=== PATIENT | male | born 1960 | race Asian ===

== ENCOUNTER 2021-05-25 12:10 | Day surgery (SDC) | payer OTHER ==
[~2021-05-25] VITALS: Ht 175.3 cm; Wt 63.5 kg
[2021-05-25] VITALS (9 sets, daily range): BP systolic 136–166; BP diastolic 79–110; PULSE 61–90; TEMP 97.5–98.6
[2021-05-25] MEDS ORDERED: XALATAN EYE DROPS OS (13:00)
[2021-05-25] MEDS ORDERED: COSOPT 2%-0.5%10 ML OS (13:01)
[2021-05-25] MEDS ORDERED: FLOMAX 0.40.4 MG/CAP PO (13:02)
--- NOTE | 2021-05-25 13:51 | NUR ---
TO BATHROOM ASSISTED BY
[2021-05-25] MEDS ORDERED: NORCO 325 MG-51 TAB PO (17:07)
--- NOTE | 2021-05-25 18:00 | NUR ---
PATIENT ADMITED INTO ROOM 350 POST OP BILATERAL HERNIA REPAIR. PATIENT IS NOT PANAMANIAN SPEAKING. SON, WHO CAN TRANSLATE IS ON HIS WAY. VSS. PATIENT APPEARS TO BE COMFORTABLE. ABD LAP SITES ARE CD&I WITH BANDAID. SANA SHINE INPLACE. HEAD TO TOE ASSESSMENT COMPLETE, SEE SHIFT ASSESSMENT. SON NOW AT BEDSIDE.
--- NOTE | 2021-05-25 18:18 | NUR ---
Patient came to the surgical unit alert and oriented x 3, vital signs stable, no pain, nausea or vomiting. Patient had a robotic bilateral inguinal repair with 3 lap sites in abd, clean, dry and intact, covered with bandaids. Patient is Mandarin speaking only. His son Marcella is with him in the room. No further needs at the moment. Call light within reach.
--- NOTE | 2021-05-25 19:15 | NUR ---
RECEIVED CHANGE OF SHIFT REPORT FROM DAY SHIFT NURSES, [facility] AND [facility].
--- NOTE | 2021-05-25 19:35 | NUR ---
SPOKE WITH PATIENT'S SON, PRINTED RX GIVEN TO SON TO HAVE MED FILLED AT PHARMACY OF CHOICE WITH SON PLANNING ON COMING BACK TO TAKE PATIENT HOME, IF PATIENT HAS MET DISCHARGE CRITERIA. PATIENT DENIES NEEDING PAIN MEDS AND REFUSED OFFER OF PAIN MEDS AT THIS TIME. PATIENT ON ROOM AIR TO ASSESS OX SAT PRIOR TO DISCHARGE.
--- NOTE | 2021-05-25 20:43 | NUR ---
PATIENT UP TO BATHROOM, ANSWERED YES IF HE HAD PEED. BACK TO BED, MOTIONED THAT HIS ABD WAS SORE. SEE MAR FOR MEDS GIVEN.
--- NOTE | 2021-05-25 21:09 | NUR ---
SON BACK TO PHARMACY, INT TAKEN OUT, PATIENT GETTING DRESSED.
--- NOTE | 2021-05-25 22:38 | NUR ---
WITH USE OF [facility] ID#[id number], REVIEWED DISCHARGE INSTRUCTIONS WITH PATIENT AND PATIENT'S SON, EPI, WITH NO FURTHER QUESTIONS REPORTED. PATIENT ESCORTED OFF UNIT VIA W/C WITH STAFF PCT X2 TO ER ENTRANCE FOR PATIENT'S SON TO TRANSPORT PATIENT HOME VIA PRIVATE CAR. PATIENT'S SON REPORTED PATIENT HAD ALL HIS BELONGINGS WITH THEM ON DISCHARGE FROM UNIT.
== END 2021-05-25 21:36 | disposition home or self-care (01) ==
LOC: SDCO 12:10 → EDBD 12:10 → SDCO 14:30 → SURG 18:00 → SDCO 21:36
DX: K40.20 Bilateral inguinal hernia, without obstruction or gangrene, not specified as recurrent (principal); I10 Essential (primary) hypertension; F17.210 Nicotine dependence, cigarettes, uncomplicated; Z20.822 Contact with and (suspected) exposure to COVID-19; Z79.899 Other long term (current) drug therapy
CPT/HCPCS: OP; C1781; J0690; J1100; J1885; J2704; J3010; J7120